=== PATIENT | male | born 1980 | race Caucasian/White ===

== ENCOUNTER 2021-10-02 17:28 | Emergency (ER) | payer OTHER ==
[~2021-10-02] VITALS: Ht 167.6 cm; Wt 73.0 kg
[2021-10-02 18:07] VITALS: BP 116/63
[2021-10-02] MEDS ORDERED: IBUPROFEN 600 MG TABLET PO ONE (21:00)
== END 2021-10-02 21:10 | disposition home or self-care (01) ==
LOC: EDBD 17:28 → EMS 17:28
DX: S93.402A Sprain of unspecified ligament of left ankle, initial encounter (principal); F10.20 Alcohol dependence, uncomplicated; F12.90 Cannabis use, unspecified, uncomplicated; X58.XXXA Exposure to other specified factors, initial encounter; Y93.89 Activity, other specified; Y92.89 Other specified places as the place of occurrence of the external cause; Y99.8 Other external cause status
CPT/HCPCS: 29540; 99284; 73590-TC; 73610-TC; Z7502; Z7610